=== PATIENT | male | born 1950 | race Caucasian/White ===

== ENCOUNTER 2017-10-11 00:13 | Emergency (ER) | payer MEDICARE ==
[2017-10-11] MEDS ORDERED: TORAdol 30 mg Injection IM ONE (00:38)
--- NOTE | 2017-10-11 00:38 | ERPHSYRPT ---
- History of Present Illness Time Seen by Provider: 10/11/17 00:35 Source: patient Exam Limitations: no limitations Physician History: The patient is a 66-year-old male complaining of worsening right knee pain and swelling since Monday night. He does not recall any injury to the knee recently. It is hard for him to walk on it because it hurts. He is using his 's walker currently. He states that when he was 17 years old, he hurt that he significantly. Since the first injury, he has had occasional flareups with swelling and pain. He is having difficulty sleeping tonight because of the pain. He has not applied ice or taken ibuprofen. His past medical history is significant for right knee injury, hypertension, GERD, and COPD. Method of Injury: unknown Occurred: days ago (3) Quality: throbbing, tightness Severity of Pain-Max: moderate Severity of Pain-Current: moderate Lower Extremities Pain: knee: right Modifying Factors: Improves With: nothing Associated Symptoms: unable to bear weight Allergies/Adverse Reactions: codeine Adverse Reaction (Verified 10/11/17 00:41) - Review of Systems Constitutional: No Fever, No Chills Eyes: No Symptoms Ears, Nose, & Throat: No Symptoms Respiratory: No Cough, No Dyspnea Cardiac: No Chest Pain, No Edema, No Syncope Abdominal/Gastrointestinal: No Abdominal Pain, No Nausea, No Vomiting, No Diarrhea Genitourinary Symptoms: No Dysuria Musculoskeletal: Joint Pain, Joint Swelling Skin: No Rash Neurological: No Dizziness, No Focal Weakness, No Sensory Changes Psychological: No Symptoms Endocrine: No Symptoms Hematologic/Lymphatic: No Symptoms Immunological/Allergic: No Symptoms All Other Systems: Reviewed and Negative - Nursing Vital Signs Nursing Vital Signs: Initial Vital Signs Temperature 9.2 F 10/11/17 00:19 Pulse Rate 81 10/11/17 00:19 Respiratory Rate 18 10/11/17 00:19 Blood Pressure 133/89 10/11/17 00:19 O2 Sat by Pulse Oximetry 97 10/11/17 00:19 Pain Scale Pain Intensity 7 - Physical Exam General Appearance: alert Eyes, Ears, Nose, Throat Exam: moist mucous membranes Neck Exam: non-tender, supple Cardiovascular/Respiratory Exam: chest non-tender, normal breath sounds, regular rate/rhythm, no respiratory distress Gastrointestinal/Abdominal Exam: non-tender, guarding Back Exam: normal inspection, No vertebral tenderness Hips Exam: bilateral: normal inspection Legs Exam: bilateral leg: normal inspection Knees Exam: right knee: joint effusion, pain, soft tissue tenderness, swelling, left knee: non-tender, normal inspection, normal range of motion Ankle Exam: bilateral ankle: normal inspection Foot Exam: bilateral foot: normal inspection Neuro/Tendon Exam: normal sensation, normal motor functions Mental Status Exam: alert, oriented x 3, cooperative Skin Exam: normal color, warm, dry SpO2 Interpretation: normal - Radiology Exams Right Knee X-ray Interpretation: Interpreted by me, Other (chronic degenerative changes. Large effusion.) Ordered Tests: Active Orders 24 hr Category Date Time Status Cold Application STAT Care 10/11/17 00:38 Active KNEE (3 VIEWS) Stat Exams 10/11/17 00:39 Ordered Medication Summary Discontinued Medications Generic Name Dose Route Start Last Admin Trade Name Freq PRN Reason Stop Dose Admin Ketorolac Tromethamine 60 mg 10/11/17 00:38 Toradol 30 Mg Injection IM 10/11/17 00:39 STAT ONE Ketorolac Tromethamine Confirm 10/11/17 00:42 Toradol 30 Mg Injection Administered 10/11/17 00:43 Dose 60 mg .ROUTE .STK-MED ONE - Progress Progress: unchanged Counseled pt/family regarding: diagnosis, need for follow-up, rad results - Departure Time of Disposition: 01:04 Departure Disposition: Home Clinical Impression: Right knee pain Condition: Stable Critical Care Time: No Referrals: DANIEL LOZA [Primary Care Provider] - Additional Instructions: You have arthritis of the right knee and a large amount of fluid around the joint. You were given Toradol 60 mg IM in the ER. Take naproxen 500 mg orally 2 times a day as needed for pain. We wrapped her knee with an Jomar wrap. Apply ice for 15 minutes 3-5 times a day. Follow-up with your local doctor in one to 2 days. Prescriptions: Naproxen 500 mg PO BID PRN #30 tablet.
[2017-10-11 00:39] VITALS: BP 133/89; PULSE 81; O2SAT 97
[2017-10-11] MEDS ORDERED: TORAdol 30 mg Injection ONE (00:42)
[2017-10-11] MEDS ORDERED: NORCO 5/325 MG PO ONE (01:12)
[2017-10-11] MEDS ORDERED: NORCO 5/325 MG ONE (01:30)
--- NOTE | 2017-10-11 08:41 | XRAY ---
Indication: Pain and swelling for days. Comparison: None 3 views of the right knee demonstrates mild/moderate tricompartmental degenerative changes, distal femur shaft healed fibrous cortical defect, and suprapatellar effusion. No other bony, articular, or soft tissue abnormalities.
== END 2017-10-11 01:42 | disposition home or self-care (01) ==
LOC: ED 00:13
DX: M25.561 Pain in right knee (principal); M25.461 Effusion, right knee; M17.11 Unilateral primary osteoarthritis, right knee
CPT/HCPCS: 73562; 96372; 99283; 99284; J1885; A9270-GY

== ENCOUNTER 2024-08-09 13:06 | Emergency (ER) | payer MEDICARE ==
[2024-08-09] MEDS ORDERED: Ativan 2 MG/1 ML VIAL ONE (13:16)
--- NOTE | 2024-08-09 13:17 | ERPHSYRPT ---
- History of Present Illness Time Seen by Provider: 08/09/24 13:16 Source: patient, EMS, old records Exam Limitations: clinical condition Physician History: This is a most 73-year-old white male patient who arrives to our emergency department transported by paramedics. Patient was at a local hotel and the hotel staff/housekeeping went into clean the room restroom and the patient had checked out, and found him on the floor unresponsive. The paramedics arrived. The patient is maintaining his oxygen saturations on mask. He is moaning and groaning. The initially evaluation per paramedics were that he had pinpoint pupils. Narcan was provided. His mental status did not change. He is moving all of his extremities. Patient has a history of hypertension, COPD and gastroesophageal reflux disease. Patient arrives to the emergency department with an OxyMask in place and oxygen saturation level of 95 to 96%, heart rate is 68 bpm, blood pressure is 90s over 60s. Timing/Duration: today Severity: moderate Deficits: cannot stand, cannot walk Baseline/Normal Cognition: alert oriented x 3 Current Cognition: poor alertness Baseline Gait: walks w/o assistance Associated Symptoms: confusion, other (Moaning) Allergies/Adverse Reactions: codeine Adverse Reaction (Verified 10/11/17 00:41) Hx Tetanus, Diphtheria Vaccination/Date Given: Yes Hx Influenza Vaccination/Date Given: Yes Hx Pneumococcal Vaccination/Date Given: No Travel Risk - International Travel Have you traveled outside of the country in past 3 weeks: No - Emerging Infectious Disease Are you exhibiting symptoms associated with any current EIDs: No - Review of Systems Constitutional: Lethargy, Other (Moaning out without verbalizing. Not answering questions) Eyes: No Symptoms Ears, Nose, & Throat: No Symptoms Respiratory: No Symptoms Cardiac: No Symptoms Abdominal/Gastrointestinal: No Symptoms Genitourinary Symptoms: No Symptoms Musculoskeletal: No Symptoms Skin: No Symptoms Neurological: Other (Not responding. 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, spleenectomy - Social History Smoking Status: Current every day smoker How long have you smoked: 50 yrs Exposure to second hand smoke: No Patient Lives Alone: No - Nursing Vital Signs Nursing Vital Signs: Initial Vital Signs Temperature 96.4 F 08/09/24 13:06 Pulse Rate 65 08/09/24 13:06 Respiratory Rate 22 08/09/24 13:06 Blood Pressure 90/30 08/09/24 13:06 O2 Sat by Pulse Oximetry 95 08/09/24 13:06 Pain Scale Pain Intensity 0 - [place] Coma Scale Best Eye Response ([place]): (4) open spontaneously Best Verbal Response ([place]): (2) incomprehsible sounds Best Motor Response ([place]): (5) localizes to pain [place] Total: 11 - Physical Exam General Appearance: moderate distress, alert, thin Eye Exam: bilateral eye: normal inspection, PERRL, EOMI Ears, Nose, Throat Exam: normal ENT inspection Neck Exam: normal inspection, non-tender, supple, full range of motion Respiratory: normal breath sounds, lungs clear, airway intact, No chest tenderness, No respiratory distress Cardiovascular: regular rate/rhythm, normal heart sounds, normal peripheral pulses Gastrointestinal: soft, normal bowel sounds, No tenderness Rectal Exam: not done Back Exam: normal inspection, normal range of motion, No CVA tenderness, No vertebral tenderness Extremity Exam: normal inspection, normal range of motion, pelvis stable Mental Status: lethargy, other (Responds to painful stimuli. Moves all extremities. Not) litigation partner Exam: normal hearing ( verbalizing. Not following commands at this point), PERRL Skin Exam: normal color, warm, dry SpO2 Interpretation: normal O2 Delivery: Oxymask - Course Nursing assessment & vital signs reviewed: Yes EKG Interpreted by Me: RATE (67), Sinus Rhythm, NORMAL AXIS, NORMAL INTERVALS, NORMAL QRS, Other (No acute ischemia based on my interpretation of this twelve- lead EKG. QTc is 457.) Ordered Tests: Active Orders 24 hr Category Date Time Status Helicopter Dispatcher STAT Care 08/09/24 13:18 Active EKG-ER Only STAT Care 08/09/24 13:17 Active Harmon [Catheter-Creighton Harmon] STAT Care 08/09/24 13:19 Active IV Insertion STAT Care 08/09/24 13:17 Active NPO (ED) STAT Care 08/09/24 13:17 Active POCT Glucose Check STAT Care 08/09/24 13:17 Active POCT Glucose Check STAT Care 08/09/24 20:02 Active Pulse Oximetry (ED) STAT Care 08/09/24 13:17 Active CHEST 1 VIEW (PORTABLE) Stat Exams 08/09/24 17:35 Taken HEAD WITHOUT CONTRAST [CT] Stat Exams 08/09/24 13:17 Taken ABG [ARTERIAL BLOOD GASES] Stat Lab 08/09/24 13:22 Completed ABG [ARTERIAL BLOOD GASES] Stat Lab 08/09/24 17:50 Completed ACETAMINOPHEN Stat Lab 08/09/24 13:17 Completed BLOOD CULTURE Stat Lab 08/09/24 19:10 Received CBC W DIFF Stat Lab 08/09/24 13:17 Completed CK-Creatinine Phosphokinase Stat Lab 08/09/24 20:13 Ordered CMP Stat Lab 08/09/24 13:17 Completed CMP Stat Lab 08/09/24 17:46 Completed CULTURE,URINE Stat Lab 08/09/24 13:30 Received ETHYL ALCOHOL Stat Lab 08/09/24 13:17 Completed Lactic Acid Stat Lab 08/09/24 13:22 Completed MONO SCREEN Stat Lab 08/09/24 19:05 Completed POCT GLUCOSE Stat Lab 08/09/24 14:36 Completed POCT GLUCOSE Stat Lab 08/09/24 15:41 Completed POCT GLUCOSE Stat Lab 08/09/24 20:06 Completed PROTIME WITH INR Stat Lab 08/09/24 13:17 Completed SALICYLATE Stat Lab 08/09/24 13:17 Completed TROPONIN Q4H Lab 08/09/24 20:15 Ordered TROPONIN Q4H Lab 08/10/24 00:15 Ordered TROPONIN Q4H Lab 08/10/24 04:15 Ordered TSH [TSH, 3RD Generation] Stat Lab 08/09/24 20:14 Ordered UA W/RFX UR CULTURE Stat Lab 08/09/24 13:30 Completed Urine Triage Profile Stat Lab 08/09/24 13:30 Completed Medication Summary Generic Name Dose Route Start Last Admin Trade Name Freq PRN Reason Stop Dose Admin Sodium Chloride 1,000 mls @ 100 mls/hr 08/09/24 13:30 08/09/24 15:42 Sodium Chloride 0.9% 1000 Ml IV 09/08/24 13:29 Infused .Q10H VICK Infusion Midazolam HCl 50 mg/ Sodium 250 mls @ 11.2 mls/hr 08/09/24 15:35 08/09/24 19:00 Chloride IV 09/08/24 15:34 0 mg/kg/hr .[id number] PRN 0 mls/hr SEDATION Titration Protocol 0.025 MG/KG/HR Sodium Chloride 1,000 mls @ 250 mls/hr 08/09/24 19:45 08/09/24 20:07 Sodium Chloride 0.9% 1000 Ml IV 09/08/24 19:44 250 mls/hr .Q4H VICK Administration Discontinued Medications Generic Name Dose Route Start Last Admin Trade Name Shanae PRN Reason Stop Dose Admin Dextrose 50 ml 08/09/24 20:16 Dextrose 50%-Water 50 Ml Abboject IV 08/09/24 20:17 STAT ONE Fentanyl Citrate 25 mcg 08/09/24 14:41 08/09/24 14:44 Fentanyl Citrate 100 Mcg/2 Ml* Vial IV 08/09/24 14:42 25 mcg STAT ONE Administration Fentanyl Citrate Confirm 08/09/24 14:39 Fentanyl Citrate 100 Mcg/2 Ml* Vial Administered 08/09/24 14:40 Dose 100 mcg .ROUTE .STK-MED ONE Fentanyl Citrate 25 mcg 08/09/24 15:17 08/09/24 15:18 Fentanyl Citrate 100 Mcg/2 Ml* Vial IV 08/09/24 15:18 25 mcg STAT ONE Administration Fentanyl Citrate Confirm 08/09/24 15:17 Fentanyl Citrate 100 Mcg/2 Ml* Vial Administered 08/09/24 15:18 Dose 100 mcg .ROUTE .STK-MED ONE Glucagon 1 mg 08/09/24 14:41 08/09/24 14:44 Glucagon 1 Mg/Vial Vial IM 08/09/24 14:42 1 mg STAT ONE Administration Glucagon Confirm 08/09/24 14:43 Glucagon 1 Mg/Vial Vial Administered 08/09/24 14:44 Dose 1 mg .ROUTE .STK-MED ONE Haloperidol Lactate 1 mg 08/09/24 13:30 08/09/24 13:35 Haloperidol Lactate 5 Mg/Ml Vial IM 08/09/24 13:31 1 mg STAT ONE Administration Haloperidol Lactate Confirm 08/09/24 13:32 Haloperidol Lactate 5 Mg/Ml Vial Administered 08/09/24 13:33 Dose 5 mg .ROUTE .STK-MED ONE Haloperidol Lactate 1 mg 08/09/24 14:06 08/09/24 14:09 Haloperidol Lactate 5 Mg/Ml Vial IM 08/09/24 14:07 1 mg STAT ONE Administration Haloperidol Lactate Confirm 08/09/24 14:09 Haloperidol Lactate 5 Mg/Ml Vial Administered 08/09/24 14:10 Dose 5 mg .ROUTE .STK-MED ONE Haloperidol Lactate 1 mg 08/09/24 15:02 08/09/24 15:03 Haloperidol Lactate 5 Mg/Ml Vial IV 08/09/24 15:03 1 mg STAT ONE Administration Haloperidol Lactate Confirm 08/09/24 15:02 Haloperidol Lactate 5 Mg/Ml Vial Administered 08/09/24 15:03 Dose 5 mg .ROUTE .STK-MED ONE Ceftriaxone Sodium 1 gm in 100 mls @ 200 mls/hr 08/09/24 18:58 08/09/24 19:33 Rocephin 1 Gm / 100 Ml Nacl IV 08/09/24 19:27 Infused STAT ONE Infusion Ceftriaxone Sodium Confirm 08/09/24 19:00 Rocephin 1 Gm / 100 Ml Nacl Administered 08/09/24 19:01 Dose 1 gm in 100 mls @ ud IV .STK-MED ONE Lorazepam Confirm 08/09/24 13:16 Lorazepam 2 Mg/1 Ml 2 Mg Vial Administered 08/09/24 13:17 Dose 2 mg .ROUTE .STK-MED ONE Lorazepam 1 mg 08/09/24 13:18 08/09/24 13:35 Lorazepam 2 Mg/1 Ml 2 Mg Vial IV 08/09/24 13:19 1 mg STAT ONE Administration Lab/Rad Data: Laboratory Result Diagrams 08/09/24 13:17 08/09/24 17:46 Laboratory Results 08/09/24 08/09/24 08/09/24 Range/Units 20:06 19:05 18:10 WBC (4.23-9.07) x10^3/uL RBC (4.63-6.08) x10^6/uL Hgb (13.7-17.5) g/dL Hct (40.1-51.0) % MCV (79.0-92.2) fL MCH (25.7-32.2) pg MCHC (32.3-36.5) g/dL RDW (11.6-14.4) % Plt Count (163-337) x10^3/uL MPV (9.4-12.4) fL Gran % (34.0-67.9) % Immature Gran % (Auto) (0.001-0.429) % Nucleat RBC Rel Count (0.00-0.2) % Eos # (Auto) (0.04-0.54) x10^3/uL Immature Gran # (Auto) (0.001-0.031) x10^3u/L Absolute Lymphs (auto) (1.32-3.57) x10^3/uL Absolute Monos (auto) (0.30-0.82) x10^3/uL Absolute Nucleated RBC (0.00-0.012) x10^3u/L Lymphocytes % (21.8-53.1) % Monocytes % (5.3-12.2) % Eosinophils % (0.8-7.0) % Basophils % (0.2-1.2) % Absolute Granulocytes (1.78-5.38) x10^3/uL Basophils # (0.01-0.08) x10^3/uL PT (9.4-12.5) SECONDS INR (0.8-3.0) Puncture Site pCO2 (35-45) mmHg pO2 (75-100) mmHg Base Excess (-2.0-2.0) O2 Saturation (94-100) g/dF ABG pH (7.35-7.45) ABG HCO3 (22-28) ABG O2 Sat (Measured) (95-100) % Pedro Luis Test A-a Gradient a/A Ratio Hemoglobin Carboxyhemoglobin (0.0-6.9) % THgb Methemoglobin (1.4-1.5) % Temperature C POC O2 Flow Rate % Sodium (135-145) mmol/L Potassium (3.5-5.1) mmol/L Chloride (98-107) mmol/L Carbon Dioxide (22-30) mmol/L Anion Gap (5-15) MEQ/L BUN (9-20) mg/dL Creatinine (0.66-1.25) mg/dL Estimated GFR ML/MIN Glucose (74-106) mg/dL POC Glucometer 77 (74 to 106) mg/dL Lactic Acid (0.4-2.0) Calcium (8.4-10.2) mg/dL Total Bilirubin (0.2-1.3) mg/dL AST (17-59) U/L ALT (0-50) U/L Alkaline Phosphatase (38-126) U/L Ammonia (9-30) umol/L Serum Total Protein (6.3-8.2) g/dL Albumin (3.5-5.0) g/dL Urine Color (Yellow) Urine Appearance (Clear) Urine pH (4.6-8.0) Ur Specific Sup[place] (1.005-1.030) Urine Protein (Negative) Urine Glucose (UA) (Negative) mg/dL Urine Ketones (Negative) Urine Blood (Negative) Urine Nitrite (Negative) Urine Bilirubin (Negative) Urine Urobilinogen (0.2) mg/dL Ur Leukocyte Esterase (Negative) U Hyaline Cast (Auto) (0-2) /LPF Urine Microscopic RBC (0-5) /HPF Urine Microscopic WBC (0-5) /HPF Ur Epithelial Cells (None Seen) /HPF Urine Bacteria (None Seen) /HPF Urine Culture Reflexed (NO) Salicylates (2-20) mg/dL Urine Opiates Level (NEGATIVE) Ur Methadone (NEGATIVE) Acetaminophen (10-30) ug/ml Urine Barbiturates (NEGATIVE) Ur Phencyclidine (PCP) (NEGATIVE) Urine Amphetamine (NEGATIVE) U Benzodiazepine Level (NEGATIVE) Urine Cocaine (NEGATIVE) Urine Marijuana (THC) (NEGATIVE) Ethyl Alcohol (0-10) mg/dL Monoscreen NEGATIVE (NEGATIVE) Influenza Type A Ag (NEGATIVE) Influenza Type B Ag (NEGATIVE) RSV (PCR) (NEGATIVE) SARS-CoV-2 (PCR) (NEGATIVE) Group A Strep Antibody NOT DETECTED (NEGATIVE) 08/09/24 08/09/24 08/09/24 Range/Units 18:10 17:50 17:46 WBC (4.23-9.07) x10^3/uL RBC (4.63-6.08) x10^6/uL Hgb (13.7-17.5) g/dL Hct (40.1-51.0) % MCV (79.0-92.2) fL MCH (25.7-32.2) pg MCHC (32.3-36.5) g/dL RDW (11.6-14.4) % Plt Count (163-337) x10^3/uL MPV (9.4-12.4) fL Gran % (34.0-67.9) % Immature Gran % (Auto) (0.001-0.429) % Nucleat RBC Rel Count (0.00-0.2) % Eos # (Auto) (0.04-0.54) x10^3/uL Immature Gran # (Auto) (0.001-0.031) x10^3u/L Absolute Lymphs (auto) (1.32-3.57) x10^3/uL Absolute Monos (auto) (0.30-0.82) x10^3/uL Absolute Nucleated RBC (0.00-0.012) x10^3u/L Lymphocytes % (21.8-53.1) % Monocytes % (5.3-12.2) % Eosinophils % (0.8-7.0) % Basophils % (0.2-1.2) % Absolute Granulocytes (1.78-5.38) x10^3/uL Basophils # (0.01-0.08) x10^3/uL PT (9.4-12.5) SECONDS INR (0.8-3.0) Puncture Site LEFT RADIAL pCO2 33 L (35-45) mmHg pO2 82 (75-100) mmHg Base Excess 9.7 H (-2.0-2.0) O2 Saturation 91.1 L (94-100) g/dF ABG pH 7.59 H* (7.35-7.45) ABG HCO3 31.7 H* (22-28) ABG O2 Sat (Measured) 98.4 (95-100) % Pedro Luis Test NOT APPLICABLE A-a Gradient 76 a/A Ratio 0.52 Hemoglobin 12.3 Carboxyhemoglobin 6.9 (0.0-6.9) % THgb Methemoglobin 0.5 L (1.4-1.5) % Temperature 37.0 C POC O2 Flow Rate 28 % Sodium 141 (135-145) mmol/L Potassium 4.5 4.4 (3.5-5.1) mmol/L Chloride 105 (98-107) mmol/L Carbon Dioxide 30 (22-30) mmol/L Anion Gap 10.6 (5-15) MEQ/L BUN 28 H (9-20) mg/dL Creatinine 1.27 H (0.66-1.25) mg/dL Estimated GFR 60.4 ML/MIN Glucose 79 (74-106) mg/dL POC Glucometer (74 to 106) mg/dL Lactic Acid (0.4-2.0) Calcium 8.2 L (8.4-10.2) mg/dL Total Bilirubin 0.70 (0.2-1.3) mg/dL AST 30 (17-59) U/L ALT 21 (0-50) U/L Alkaline Phosphatase 100 (38-126) U/L Ammonia (9-30) umol/L Serum Total Protein 6.1 L (6.3-8.2) g/dL Albumin 3.4 L (3.5-5.0) g/dL Urine Color (Yellow) Urine Appearance (Clear) Urine pH (4.6-8.0) Ur Specific Supai (1.005-1.030) Urine Protein (Negative) Urine Glucose (UA) (Negative) mg/dL Urine Ketones (Negative) Urine Blood (Negative) Urine Nitrite (Negative) Urine Bilirubin (Negative) Urine Urobilinogen (0.2) mg/dL Ur Leukocyte Esterase (Negative) U Hyaline Cast (Auto) (0-2) /LPF Urine Microscopic RBC (0-5) /HPF Urine Microscopic WBC (0-5) /HPF Ur Epithelial Cells (None Seen) /HPF Urine Bacteria (None Seen) /HPF Urine Culture Reflexed (NO) Salicylates (2-20) mg/dL Urine Opiates Level (NEGATIVE) Ur Methadone (NEGATIVE) Acetaminophen (10-30) ug/ml Urine Barbiturates (NEGATIVE) Ur Phencyclidine (PCP) (NEGATIVE) Urine Amphetamine (NEGATIVE) U Benzodiazepine Level (NEGATIVE) Urine Cocaine (NEGATIVE) Urine Marijuana (THC) (NEGATIVE) Ethyl Alcohol (0-10) mg/dL Monoscreen (NEGATIVE) Influenza Type A Ag NEGATIVE (NEGATIVE) Influenza Type B Ag NEGATIVE (NEGATIVE) RSV (PCR) NEGATIVE (NEGATIVE) SARS-CoV-2 (PCR) NEGATIVE (NEGATIVE) Group A Strep Antibody (NEGATIVE) 08/09/24 08/09/24 08/09/24 Range/Units 16:50 15:41 14:36 WBC (4.23-9.07) x10^3/uL RBC (4.63-6.08) x10^6/uL Hgb (13.7-17.5) g/dL Hct (40.1-51.0) % MCV (79.0-92.2) fL MCH (25.7-32.2) pg MCHC (32.3-36.5) g/dL RDW (11.6-14.4) % Plt Count (163-337) x10^3/uL MPV (9.4-12.4) fL Gran % (34.0-67.9) % Immature Gran % (Auto) (0.001-0.429) % Nucleat RBC Rel Count (0.00-0.2) % Eos # (Auto) (0.04-0.54) x10^3/uL Immature Gran # (Auto) (0.001-0.031) x10^3u/L Absolute Lymphs (auto) (1.32-3.57) x10^3/uL Absolute Monos (auto) (0.30-0.82) x10^3/uL Absolute Nucleated RBC (0.00-0.012) x10^3u/L Lymphocytes % (21.8-53.1) % Monocytes % (5.3-12.2) % Eosinophils % (0.8-7.0) % Basophils % (0.2-1.2) % Absolute Granulocytes (1.78-5.38) x10^3/uL Basophils # (0.01-0.08) x10^3/uL PT (9.4-12.5) SECONDS INR (0.8-3.0) Puncture Site pCO2 (35-45) mmHg pO2 (75-100) mmHg Base Excess (-2.0-2.0) O2 Saturation (94-100) g/dF ABG pH (7.35-7.45) ABG HCO3 (22-28) ABG O2 Sat (Measured) (95-100) % Pedro Luis Test A-a Gradient a/A Ratio Hemoglobin Carboxyhemoglobin (0.0-6.9) % THgb Methemoglobin (1.4-1.5) % Temperature C POC O2 Flow Rate % Sodium (135-145) mmol/L Potassium (3.5-5.1) mmol/L Chloride (98-107) mmol/L Carbon Dioxide (22-30) mmol/L Anion Gap (5-15) MEQ/L BUN (9-20) mg/dL Creatinine (0.66-1.25) mg/dL Estimated GFR ML/MIN Glucose (74-106) mg/dL POC Glucometer 141 H 85 (74 to 106) mg/dL Lactic Acid (0.4-2.0) Calcium (8.4-10.2) mg/dL Total Bilirubin (0.2-1.3) mg/dL AST (17-59) U/L ALT (0-50) U/L Alkaline Phosphatase (38-126) U/L Ammonia < 9 L (9-30) umol/L Serum Total Protein (6.3-8.2) g/dL Albumin (3.5-5.0) g/dL Urine Color (Yellow) Urine Appearance (Clear) Urine pH (4.6-8.0) Ur Specific Supai (1.005-1.030) Urine Protein (Negative) Urine Glucose (UA) (Negative) mg/dL Urine Ketones (Negative) Urine Blood (Negative) Urine Nitrite (Negative) Urine Bilirubin (Negative) Urine Urobilinogen (0.2) mg/dL Ur Leukocyte Esterase (Negative) U Hyaline Cast (Auto) (0-2) /LPF Urine Microscopic RBC (0-5) /HPF Urine Microscopic WBC (0-5) /HPF Ur Epithelial Cells (None Seen) /HPF Urine Bacteria (None Seen) /HPF Urine Culture Reflexed (NO) Salicylates (2-20) mg/dL Urine Opiates Level (NEGATIVE) Ur Methadone (NEGATIVE) Acetaminophen (10-30) ug/ml Urine Barbiturates (NEGATIVE) Ur Phencyclidine (PCP) (NEGATIVE) Urine Amphetamine (NEGATIVE) U Benzodiazepine Level (NEGATIVE) Urine Cocaine (NEGATIVE) Urine Marijuana (THC) (NEGATIVE) Ethyl Alcohol (0-10) mg/dL Monoscreen (NEGATIVE) Influenza Type A Ag (NEGATIVE) Influenza Type B Ag (NEGATIVE) RSV (PCR) (NEGATIVE) SARS-CoV-2 (PCR) (NEGATIVE) Group A Strep Antibody (NEGATIVE) 08/09/24 08/09/24 08/09/24 Range/Units 13:30 13:30 13:22 WBC (4.23-9.07) x10^3/uL RBC (4.63-6.08) x10^6/uL Hgb (13.7-17.5) g/dL Hct (40.1-51.0) % MCV (79.0-92.2) fL MCH (25.7-32.2) pg MCHC (32.3-36.5) g/dL RDW (11.6-14.4) % Plt Count (163-337) x10^3/uL MPV (9.4-12.4) fL Gran % (34.0-67.9) % Immature Gran % (Auto) (0.001-0.429) % Nucleat RBC Rel Count (0.00-0.2) % Eos # (Auto) (0.04-0.54) x10^3/uL Immature Gran # (Auto) (0.001-0.031) x10^3u/L Absolute Lymphs (auto) (1.32-3.57) x10^3/uL Absolute Monos (auto) (0.30-0.82) x10^3/uL Absolute Nucleated RBC (0.00-0.012) x10^3u/L Lymphocytes % (21.8-53.1) % Monocytes % (5.3-12.2) % Eosinophils % (0.8-7.0) % Basophils % (0.2-1.2) % Absolute Granulocytes (1.78-5.38) x10^3/uL Basophils # (0.01-0.08) x10^3/uL PT (9.4-12.5) SECONDS INR (0.8-3.0) Puncture Site RIGHT RADIAL pCO2 36 (35-45) mmHg pO2 80 (75-100) mmHg Base Excess 9.5 H (-2.0-2.0) O2 Saturation 95.9 (94-100) g/dF ABG pH 7.56 H* (7.35-7.45) ABG HCO3 32.2 H* (22-28) ABG O2 Sat (Measured) 98.1 (95-100) % Pedro Luis Test NOT APPLICABLE A-a Gradient 75 a/A Ratio 0.52 Hemoglobin 13.3 Carboxyhemoglobin 1.3 (0.0-6.9) % THgb Methemoglobin 0.9 L (1.4-1.5) % Temperature 37.0 C POC O2 Flow Rate 28 % Sodium (135-145) mmol/L Potassium 5.0 (3.5-5.1) mmol/L Chloride (98-107) mmol/L Carbon Dioxide (22-30) mmol/L Anion Gap (5-15) MEQ/L BUN (9-20) mg/dL Creatinine (0.66-1.25) mg/dL Estimated GFR ML/MIN Glucose (74-106) mg/dL POC Glucometer (74 to 106) mg/dL Lactic Acid 1.1 (0.4-2.0) Calcium (8.4-10.2) mg/dL Total Bilirubin (0.2-1.3) mg/dL AST (17-59) U/L ALT (0-50) U/L Alkaline Phosphatase (38-126) U/L Ammonia (9-30) umol/L Serum Total Protein (6.3-8.2) g/dL Albumin (3.5-5.0) g/dL Urine Color Dark Yellow (Yellow) Urine Appearance Clear (Clear) Urine pH 6.0 (4.6-8.0) Ur Specific Supai 1.025 (1.005-1.030) Urine Protein 100 A (Negative) Urine Glucose (UA) Negative (Negative) mg/dL Urine Ketones Trace A (Negative) Urine Blood Negative (Negative) Urine Nitrite Negative (Negative) Urine Bilirubin Negative (Negative) Urine Urobilinogen 1.0 A (0.2) mg/dL Ur Leukocyte Esterase Trace A (Negative) U Hyaline Cast (Auto) 3-5 A (0-2) /LPF Urine Microscopic RBC 0-2 (0-5) /HPF Urine Microscopic WBC 3-5 (0-5) /HPF Ur Epithelial Cells Few (None Seen) /HPF Urine Bacteria Few A (None Seen) /HPF Urine Culture Reflexed ORDERED SEPARATELY (NO) Salicylates (2-20) mg/dL Urine Opiates Level NEGATIVE (NEGATIVE) Ur Methadone NEGATIVE (NEGATIVE) Acetaminophen (10-30) ug/ml Urine Barbiturates NEGATIVE (NEGATIVE) Ur Phencyclidine (PCP) NEGATIVE (NEGATIVE) Urine Amphetamine NEGATIVE (NEGATIVE) U Benzodiazepine Level NEGATIVE (NEGATIVE) Urine Cocaine NEGATIVE (NEGATIVE) Urine Marijuana (THC) NEGATIVE (NEGATIVE) Ethyl Alcohol (0-10) mg/dL Monoscreen (NEGATIVE) Influenza Type A Ag (NEGATIVE) Influenza Type B Ag (NEGATIVE) RSV (PCR) (NEGATIVE) SARS-CoV-2 (PCR) (NEGATIVE) Group A Strep Antibody (NEGATIVE) 08/09/24 08/09/24 08/09/24 Range/Units 13:17 13:17 13:17 WBC 15.1 H (4.23-9.07) x10^3/uL RBC 4.47 L (4.63-6.08) x10^6/uL Hgb 13.3 L (13.7-17.5) g/dL Hct 40.2 (40.1-51.0) % MCV 89.9 (79.0-92.2) fL MCH 29.8 (25.7-32.2) pg MCHC 33.1 (32.3-36.5) g/dL RDW 13.9 (11.6-14.4) % Plt Count 490 H (163-337) x10^3/uL MPV 9.1 L (9.4-12.4) fL Gran % 83.0 H (34.0-67.9) % Immature Gran % (Auto) 0.9 H (0.001-0.429) % Nucleat RBC Rel Count 0.0 (0.00-0.2) % Eos # (Auto) 0.10 (0.04-0.54) x10^3/uL Immature Gran # (Auto) 0.13 H (0.001-0.031) x10^3u/L Absolute Lymphs (auto) 1.18 L (1.32-3.57) x10^3/uL Absolute Monos (auto) 1.07 H (0.30-0.82) x10^3/uL Absolute Nucleated RBC 0.00 (0.00-0.012) x10^3u/L Lymphocytes % 7.8 L (21.8-53.1) % Monocytes % 7.1 (5.3-12.2) % Eosinophils % 0.7 L (0.8-7.0) % Basophils % 0.5 (0.2-1.2) % Absolute Granulocytes 12.58 H (1.78-5.38) x10^3/uL Basophils # 0.07 (0.01-0.08) x10^3/uL PT 10.2 (9.4-12.5) SECONDS INR 0.93 (0.8-3.0) Puncture Site pCO2 (35-45) mmHg pO2 (75-100) mmHg Base Excess (-2.0-2.0) O2 Saturation (94-100) g/dF ABG pH (7.35-7.45) ABG HCO3 (22-28) ABG O2 Sat (Measured) (95-100) % Pedro Luis Test A-a Gradient a/A Ratio Hemoglobin Carboxyhemoglobin (0.0-6.9) % THgb Methemoglobin (1.4-1.5) % Temperature C POC O2 Flow Rate % Sodium 141 (135-145) mmol/L Potassium 5.1 (3.5-5.1) mmol/L Chloride 101 (98-107) mmol/L Carbon Dioxide 31 H (22-30) mmol/L Anion Gap 14.2 (5-15) MEQ/L BUN 25 H (9-20) mg/dL Creatinine 1.44 H (0.66-1.25) mg/dL Estimated GFR 52.0 ML/MIN Glucose 109 H (74-106) mg/dL POC Glucometer (74 to 106) mg/dL Lactic Acid (0.4-2.0) Calcium 8.9 (8.4-10.2) mg/dL Total Bilirubin 0.80 (0.2-1.3) mg/dL AST 33 (17-59) U/L ALT 25 (0-50) U/L Alkaline Phosphatase 111 (38-126) U/L Ammonia (9-30) umol/L Serum Total Protein 7.2 (6.3-8.2) g/dL Albumin 4.0 (3.5-5.0) g/dL Urine Color (Yellow) Urine Appearance (Clear) Urine pH (4.6-8.0) Ur Specific Supai (1.005-1.030) Urine Protein (Negative) Urine Glucose (UA) (Negative) mg/dL Urine Ketones (Negative) Urine Blood (Negative) Urine Nitrite (Negative) Urine Bilirubin (Negative) Urine Urobilinogen (0.2) mg/dL Ur Leukocyte Esterase (Negative) U Hyaline Cast (Auto) (0-2) /LPF Urine Microscopic RBC (0-5) /HPF Urine Microscopic WBC (0-5) /HPF Ur Epithelial Cells (None Seen) /HPF Urine Bacteria (None Seen) /HPF Urine Culture Reflexed (NO) Salicylates < 1.0 L (2-20) mg/dL Urine Opiates Level (NEGATIVE) Ur Methadone (NEGATIVE) Acetaminophen < 10 L (10-30) ug/ml Urine Barbiturates (NEGATIVE) Ur Phencyclidine (PCP) (NEGATIVE) Urine Amphetamine (NEGATIVE) U Benzodiazepine Level (NEGATIVE) Urine Cocaine (NEGATIVE) Urine Marijuana (THC) (NEGATIVE) Ethyl Alcohol < 10 (0-10) mg/dL Monoscreen (NEGATIVE) Influenza Type A Ag (NEGATIVE) Influenza Type B Ag (NEGATIVE) RSV (PCR) (NEGATIVE) SARS-CoV-2 (PCR) (NEGATIVE) Group A Strep Antibody (NEGATIVE) - Progress Progress: unchanged, re-examined Progress Note: 08/09/24 15:40 I am having difficulty sedating him. His agitation has improved but he still moving his head and legs. My concern is that this will interfere with CT scan of the head. We have giving him low-dose of intravenous Ativan, low-dose intramuscular/IV Haldol. We have also provided him with intravenous low-dose fentanyl. We will place a Versed drip on him and if this does not work we will orotracheally intubate him. We have been trying to get in touch with family members. This has been unsuccessful. 08/09/24 18:40 I interpreted the patient's repeat twelve-lead EKG that was performed on 08/09/2024 at 1529. Heart rate is 72 bpm. Rhythm is sinus rhythm. There is normal axis deviation, normal QRS and normal intervals. QTc is 443 08/09/24 20:20 I interpreted the patient's laboratory data results. The patient does have mild dehydration, leukocytosis, P CO2 of 33, pH is 7.59. There is no other acutely, emergent medical findings on the laboratory data results. 08/09/24 20:[address] scan of the head without contrast was interpreted by the radiologist. The impression states nonacute senile brain. I interpreted the preliminary chest x-ray report. I see right base infiltrate. I had the radiologist read the final report and he agrees that there is a right base infiltrate. However in addition, he states there is atelectasis and scarring present. I spoke with [facility] hospitalist, Dr. Acuña. I reviewed the patient's presenting complaint, his past medical history as we know it, physical findings on examination, the patient's physical response to our treatment, current condition and the workup results. He recommended that we add a troponin, CK level and free T4 as well as TSH levels. He accepts the patient in transfer. Counseled pt/family regarding: lab results, diagnosis, rad results Medical Desision Making - Independent Historian Additional History obtained from: Profile Grinder/EMT - Discussion of managment Care discussed with:: hospitalist (Dr. Acuña at [facility]) - Diagnostic Testing Diagnostic test were ordered, analyzed, and reviewed by me: Yes Radiological Interpretation: Interpreted by me, Reviewed by me, Teleradiologist Report - Risk of complications The pt has a high risk of morbidity or mortality based on: Decision regarding hospitilization or escalation of hosp level of care - Departure Departure Disposition: Transfer Clinical Impression: Altered mental status, Leukocytosis, Pneumonia, Hypotension Condition: Serious Critical Care Time: Yes Critical Care Time(excluding separately billable procedures): Critical 30-74 mins (90) Referrals: DANIEL LOZA [Primary Care Provider] - Follow up/PCP as directed
[2024-08-09 13:22] LABS: A-aADO2 75; ABG HEMOGLOBIN 13.3; ARTERIAL BLD GAS O2 SATURATION 98.1 % (95-100); ARTERIAL BLOOD GAS BASE EXCESS 9.5 (-2.0-2.0); ARTERIAL BLOOD GAS FIO2 28 %; ARTERIAL BLOOD GAS PCO2 36 mmHg (35-45); ARTERIAL BLOOD GAS PO2 80 mmHg (75-100); CARBOXYHEMOGLOBIN 1.3 % THgb (0.0-6.9); HCO3- 32.2 (22-28); HGB O2 SAT 95.9 g/dF (94-100); Lactic Acid 1.1 (0.4-2.0); Methhemoglobin 0.9 % (1.4-1.5); paO2 pAO1 0.52
[2024-08-09 13:23] LABS: ABG SITE RIGHT RADIAL; ARTERIAL BLOOD GAS pH 7.56 (7.35-7.45)
[2024-08-09 13:24] VITALS: TEMP 96.4
[2024-08-09 13:24] LABS: Absolute Neutrophil Ct (ANC) 12.58 x10^3/uL (1.78-5.38); BASOPHIL % 0.5 % (0.2-1.2); Basophil (Absolute #) 0.07 x10^3/uL (0.01-0.08); Eosinophil % 0.7 % (0.8-7.0); Hematocrit 40.2 % (40.1-51.0); Hemoglobin 13.3 g/dL (13.7-17.5); IMMATURE GRAN # 0.13 x10^3u/L (0.001-0.031); IMMATURE GRAN % 0.9 % (0.001-0.429); Lymphocyte (Absolute #) 1.18 x10^3/uL (1.32-3.57); Lymphocytes % 7.8 % (21.8-53.1); Mean Cell Volume 89.9 fL (79.0-92.2); Mean Corpuscular Hemoglobin 29.8 pg (25.7-32.2); Mean Corpuscular Hgb Concent. 33.1 g/dL (32.3-36.5); Mean Platelet Volume 9.1 fL (9.4-12.4); Monocyte (Absolute #) 1.07 x10^3/uL (0.30-0.82); Monocytes % 7.1 % (5.3-12.2); Platelet Count 490 x10^3/uL (163-337); Red Blood Count 4.47 x10^6/uL (4.63-6.08); Red Cell Distribution Width 13.9 % (11.6-14.4); White Blood Count 15.1 x10^3/uL (4.23-9.07)
[2024-08-09] MEDS ORDERED: Sodium Chloride 0.9% 1000 ML 1,000 ML ONE ×2 (13:32→19:59)
[2024-08-09] MEDS ORDERED: Haldol 5 MG ONE ×3 (13:32→15:02)
[2024-08-09 13:33] LABS: INR 0.93 (0.8-3.0); PROTIME 10.2 SECONDS (9.4-12.5)
[2024-08-09 13:34] LABS: ACETAMINOPHEN < 10 ug/ml (10-30); ALKALINE PHOSPHATASE 111 U/L (38-126); ANION GAP 14.2 MEQ/L (5-15); BLOOD UREA NITROGEN 25 mg/dL (9-20); CHLORIDE 101 mmol/L (98-107); Calcium 8.9 mg/dL (8.4-10.2); Carbon Dioxide 31 mmol/L (22-30); Creatinine 1 1.44 mg/dL (0.66-1.25); ETHYL ALCOHOL < 10 mg/dL (0-10); Glucose 109 mg/dL (74-106); Potassium 5.1 mmol/L (3.5-5.1); SALICYLATE < 1.0 mg/dL (2-20); SGOT/AST 33 U/L (17-59); SGPT/ALT 25 U/L (0-50); SODIUM 141 mmol/L (135-145); Total Protein 7.2 g/dL (6.3-8.2)
[2024-08-09] MEDS: Sodium Chloride 0.9% 1000 ML 1,000 ML IV SCH ×2 (13:34→20:07)
[2024-08-09] MEDS: Ativan 2 MG/1 ML VIAL IV ONE (13:35)
[2024-08-09] MEDS: Haldol 5 MG IM ONE ×2 (13:35→14:09)
[2024-08-09 13:59] LABS: Appearance Clear (Clear); Bilirubin Negative (Negative); Blood Negative (Negative); Glucose, Urine Negative (Negative); Ketones Trace (Negative); Leukocyte Esterase Trace (Negative); Nitrite Negative (Negative); Protein,Urine Dip 100 (Negative); Specific Gravity 1.025 (1.005-1.030)
[2024-08-09 14:00] LABS: Bacteria Few /HPF (None Seen); Epithelial Cells Few /HPF (None Seen); RBC 0-2 /HPF (0-5)
[2024-08-09 14:11] LABS: Amphetamine,Urine NEGATIVE (NEGATIVE); Barbiturate,Urine NEGATIVE (NEGATIVE); Benzodiazepine,Urine NEGATIVE (NEGATIVE); Cocaine,Urine NEGATIVE (NEGATIVE); Methadone,Urine NEGATIVE (NEGATIVE); Opiate,Urine NEGATIVE (NEGATIVE); PCP,Urine NEGATIVE (NEGATIVE); THC,Urine NEGATIVE (NEGATIVE)
[2024-08-09] MEDS ORDERED: SUBLIMAZE 100 MCG/2 ML ONE ×2 (14:39→15:17)
[2024-08-09] MEDS ORDERED: GlucaGen 1 MG ONE (14:43)
[2024-08-09] MEDS: SUBLIMAZE 100 MCG/2 ML IV ONE ×2 (14:44→15:18)
[2024-08-09] MEDS: GlucaGen 1 MG IM ONE (14:44)
[2024-08-09] MEDS: Haldol 5 MG IV ONE (15:03)
[2024-08-09] MEDS: Versed 50 MG/ 10 Ml MDV*** 50 MG in Sodium Chloride 0.9% 250 ML 240 ML IV PRN (16:05)
[2024-08-09 17:54] LABS: A-aADO2 76; ABG HEMOGLOBIN 12.3; ABG POTASSIUM 4.5 (3.5-5.1); ARTERIAL BLD GAS O2 SATURATION 98.4 % (95-100); ARTERIAL BLOOD GAS BASE EXCESS 9.7 (-2.0-2.0); ARTERIAL BLOOD GAS FIO2 28 %; ARTERIAL BLOOD GAS PCO2 33 mmHg (35-45); ARTERIAL BLOOD GAS PO2 82 mmHg (75-100); CARBOXYHEMOGLOBIN 6.9 % THgb (0.0-6.9); HCO3- 31.7 (22-28); HGB O2 SAT 91.1 g/dF (94-100); Methhemoglobin 0.5 % (1.4-1.5); paO2 pAO1 0.52
[2024-08-09 17:55] LABS: ABG SITE LEFT RADIAL; ARTERIAL BLOOD GAS pH 7.59 (7.35-7.45)
[2024-08-09 18:33] LABS: ALBUMIN 3.4 g/dL (3.5-5.0); ANION GAP 10.6 MEQ/L (5-15); BILIRUBIN,TOTAL 0.7 mg/dL (0.2-1.3); Calcium 8.2 mg/dL (8.4-10.2); Creatinine 1 1.27 mg/dL (0.66-1.25); EST GLOMERULAR FILTRATION RATE 60.4 ML/MIN; Potassium 4.4 mmol/L (3.5-5.1); Total Protein 6.1 g/dL (6.3-8.2)
[2024-08-09 18:51] LABS: INFLUENZA A NEGATIVE (NEGATIVE); INFLUENZA B NEGATIVE (NEGATIVE); RESPIRATORY SYNCTIAL VIRUS NEGATIVE (NEGATIVE); SARS-CoV-2 Xpert Express NEGATIVE (NEGATIVE)
[2024-08-09] MEDS ORDERED: ROCEPHIN 1 GM / 100 ML NaCl 1 GM/100 ML IVPB IV ONE (19:00)
[2024-08-09] MEDS: ROCEPHIN 1 GM / 100 ML NaCl 1 GM/100 ML IVPB IV ONE (19:03)
[2024-08-09] MEDS ORDERED: D50W 50 ml Abboject IV ONE (20:30)
[2024-08-09] MEDS: D50W 50 ml Abboject IV ONE (20:32)
[2024-08-09 23:04] VITALS: O2SAT 92
[2024-08-09 23:34] VITALS: BP 101/60; PULSE 62; RESP 21
--- NOTE | 2024-08-10 07:41 | XRAY ---
Indication: Fever. Comparison: None Portable chest hyperinflated with hazy right lung interstitial alveolar opacities and mild right base pleural effusion/thickening. Remaining heart and left lung unremarkable. Bony thorax intact with osteopenia.
--- NOTE | 2024-08-10 07:43 | XRAY ---
Indication: Unresponsive. Multiple contiguous axial images obtained through the head without contrast. Comparison: None Age-appropriate global atrophy and minimal periventricular degenerative micro-ischemia bilaterally. No acute intracranial hemorrhage, abnormal extra-axial fluid collection, or mass effect. Fourth ventricle is midline without hydrocephalus. Bony calvarium intact. Visualized paranasal sinuses and mastoid air cells are clear. Impression: Nonacute senile brain.
== END 2024-08-09 23:50 | disposition short-term general hospital (02) ==
LOC: ED 13:06
DX: R41.82 Altered mental status, unspecified (principal); D72.829 Elevated white blood cell count, unspecified; J18.9 Pneumonia, unspecified organism; I95.9 Hypotension, unspecified; I10 Essential (primary) hypertension; Z72.0 Tobacco use
CPT/HCPCS: 0241U; 36415; 36600; 51702; 70450; 71045; 80053; 80143; 80179; 80307; 81001; 82077; 82140; 82375; 82550; 82803; 82947; 83605; 84439; 84443; 84484; 85025; 85610; 86308; 87040; 87086; 87651; 93005; 93041; 94760; 96361; 96365; 96366; 96367; 96372; 96375; 96376; 99291; 96374; 99285; J0696; J1610; J1630; J2060; J2250; J3010